=== PATIENT | female | born 1985 | race Caucasian/White ===

== ENCOUNTER 2016-12-12 16:55 | Emergency (ER) | payer OTHER ==
[~2016-12-12] VITALS: Ht 157.5 cm; Wt 45.4 kg
[~2016-12-12 16:55] MED LIST: ANTIVERT25 MG PO; CIPRO250 M1 PO; DAILY MULTIPLE1 EACH PO
--- NOTE | 2016-12-12 17:08 | ED NECK/BACK PAIN COMPLAINT ---
History of Present Illness General Chief Complaint: Low Back Pain/Injury Stated Complaint: BACK PAIN Source: patient, family, old records Exam Limitations: no limitations Vital Signs & Intake/Output Vital Signs & Intake/Output Vital Signs Date Time Temp Pulse Resp B/P Pulse O2 O2 Flow FiO2 Ox Delivery Rate 12/12 1806 97.4 82 18 122/82 97 Room Air Room Air 12/12 1659 97.7 87 16 144/85 96 Room Air Allergies Coded Allergies: NO KNOWN ALLERGIES (09/15/13) Reconcile Medications Cyclobenzaprine HCl 5 MG TABLET 1 TAB PO TIDPRN PRN pain Multivitamin (Multi-Day Vitamins) 1 EACH TABLET 1 TAB PO DAILY SUPPLEMENT ( Reported) Triage Note: PT STATES SHE IS HAVING LEFT SIDED BACK PAIN THAT STARTED A FEW DAYS AGO BUT STATES THE PAIN HAS INCREASED THIS PAST DAY. Triage Nurses Notes Reviewed? yes Onset: Abrupt Duration: day(s): (4), constant Timing: recent history Quality/Severity: mild, moderate Radiation: none Context: unknown Method of Injury: unknown Loss of Consciousness: no loss of consciousness Associated Symptoms: denies : No Patient currently breastfeeds: No HPI: 31-year-old female with no medical history presents with her family for evaluation complaining of left-sided back pain that started 4 days ago has been constant described as aching and stiffness since that is nonradiating. She denies any abdominal pain nausea vomiting diarrhea. No urinary symptoms. She denies any radiation of pain down her legs no numbness or tingling in her extremities. She denies any recent trauma or injury. She's been taking Tylenol Motrin without any improvement. She of similar symptoms in the past. No modifying factors or associated symptoms otherwise. Symptoms are not worse with change in position or movement (MARGE WRIGHT) Past History Travel History Traveled to [place] past 21 day No Medical History Any Pertinent Medical History? none Neurological: NONE EENT: NONE Cardiovascular: NONE Respiratory: NONE Gastrointestinal: NONE Hepatic: NONE Renal: NONE Musculoskeletal: NONE Psychiatric: NONE Endocrine: NONE Blood Disorders: NONE Cancer(s): NONE PRISM MEASURER/Reproductive: NONE Surgical History Surgical History: non-contributory Psychosocial History What is your primary language Slovenian Tobacco Use: Never used ETOH Use: denies use Illicit Drug Use: denies illicit drug use Family History Hx Contributory? No (MARGE WRIGHT) Review of Systems Review of Systems Constitutional: Reports: see HPI. All Other Systems: Reviewed and Negative Comments Review of systems: See HPI, All other systems negative. Constitutional, no chills no fever, no malaise no weight loss HEENT: No visual changes no sore throat no congestion Cardiovascular: No chest pain , no palpitation Skin, no rashes, no change in skin Respiratory: No dyspnea no cough no sputum GI: No nausea no vomiting, no diarrhea, no bloating/constipation : No dysuria No hematuria, no frequency, no discharge Muscle skeletal: No joint pain, no joint swelling, back pain, no neck pain, Neurologic: No numbness no headache Psych: No stress Heme/endocrine: No bruising no bleeding Immunology: No lymphadenopathy (MARGE WRIGHT) Physical Exam Physical Exam General Appearance: well developed/nourished, alert, awake Neck: normal inspection, supple, full range of motion Comments: Well-developed well-nourished person in no acute distress HEENT: Normal EENT exam; PERRL, EOMI, no nystagmus. HEAD is atraumatic. moist mucous membranes. Neck: Supple, normal range of motion Back: Nontender, no CVA tenderness. Full range of motion Cardiovascular: Regular rate and rhythms no murmurs rubs Respiratory: Chest nontender.There were no bony deformities, no asymmetry. No respiratory distress. Patient speaking in full complete sentences. Breath sounds clear to auscultation bilaterally: NO W/R/R Abdomen: Soft, nontender nondistended, no appreciable organomegaly. Normal bowel sounds. No rebound/guarding, No ascites. Extremity: No edema, full range of motion of extremities, normal and equal pulses bilaterally, 5 out of 5 strength noted to bilateral upper and lower extremities, neg slr b/l Neuro: Alert oriented x3, motor sensory normal, There were no obvious focal neurologic abnormalities. Skin: No appreciable rash on exposed skin, skin is warm and dry. Psych: Mood and affect is normal, memory and judgment is normal. (MARGE WRIGHT) Progress Differential Diagnosis: cauda equina syn, herniated disc, myofascial strain, pyelo/UTI, T/L spine injury, ureterolithiasis, iup, ectopic, pancreattis Plan of Care: Orders Procedure Date/time Status Add-on Test (ER Only) 01/21 1754 Active CULTURE,URINE 12/12 1727 Active URINE 12/12 1713 Complete URINALYSIS 12/12 1713 Complete LIPASE 12/12 1713 Complete CBC WITHOUT DIFFERENTIAL 12/12 1713 Complete BASIC METABOLIC PANEL 12/12 1713 Complete AMYLASE 12/12 1713 Complete Laboratory Tests 12/12/161727: Urinalysis LIGHT H, Urine Color YEL, Urine Clarity CLEAR, Urine pH 6.0, Ur Specific [place] 1.020, Urine Protein TRACE H, Urine Ketones NEG, Urine Nitrite NEG, Urine Bilirubin NEG, Urine Urobilinogen 0.2, Ur Leukocyte Esterase NEG, Ur Microscopic SEDIMENT EXAMINED, Urine RBC 1-3, Urine WBC 5-10 H, Ur Epithelial Cells MOD H, Urine Mucus MANY H, Urine Hemoglobin NEG, Urine Glucose NEG, Urine Test NEGATIVE 12/12/161724: Anion Gap 12, Estimated GFR > 60, BUN/Creatinine Ratio 10.0, Glucose 95, Calcium 9.9, Amylase 99, Lipase 76, CBC w Diff NO MAN DIFF REQ, RBC 4.64, MCV 91.5, MCH 30.9, RDW 13.2, MPV 10.3, Gran % 74.8, Lymphocytes % 12.2 L, Monocytes % 11.6 H, Eosinophils % 1.1, Basophils % 0.3, Absolute Granulocytes 5.9, Absolute Lymphocytes 1.0 L, Absolute Monocytes 0.9 H, Absolute Eosinophils 0.1, Absolute Basophils 0, PUBS MCHC 33.8 Microbiology 12/12 1727 URINE ROUT: Urine Culture - RECD Labs ordered old records reviewed patient is declining anything for pain offered Discussed with the patient and her family at length all of her lab results do not believe the patient personally imaging as her labs are unremarkable there's been no recent injury or trauma which they're in agreement with advise close follow-up with her primary care physician. Prescription for Flexeril was provided advised Tylenol Motrin as needed. I discussed with the patient at length all of their results, need for close follow up with their primary care physician. This week. I answered all of their questions, they feel comfortable with the plan and follow-up care. I discussed the medications that they will receive with the patient. I gave them signs and symptoms that could indicate an adverse reaction. I have advised them to limit their activities until they can see how they respond to the medication. (MARGE WRIGHT) Departure Departure Time of Disposition: 1757 Disposition: HOME OR SELF CARE Condition: Stable Clinical Impression Primary Impression: Low back strain Referrals: FELIPE LAZARO,GABRIELA Bishop Additional Instructions: Follow-up with your primary care physician on Wednesday. Tylenol or Motrin every 4 -6 hours as needed interchange ice and heat. Flexeril as directed this prescription was sent to your [facility] Departure Forms: Customer Survey General Discharge Information Prescriptions: Current Visit Scripts Cyclobenzaprine HCl 1 TAB PO TIDPRN PRN pain #12 TAB (MARGE WRIGHT) PA/JOINERY PATTERNMAKER Co-Sign Statement Statement: ED Attending supervision documentation- [] I saw and evaluated the patient. I have also reviewed all the pertinent lab results and diagnostic results. I agree with the findings and the plan of care as documented in the PA's/JOINERY PATTERNMAKER's documentation. [X] I have reviewed the ED Record and agree with the PA's/JOINERY PATTERNMAKER's documentation. [] Additions or exceptions (if any) to the PAs/JOINERY PATTERNMAKER's note and plan are summarized below: [] (VINAY LAZARO,VISHAL Cooney)
[2016-12-12 17:33] LABS: ABSOLUTE BASOPHIL COUNT 0 /CUMM (0.0-0.2); ABSOLUTE EOSINOPHIL COUNT 0.1 /CUMM (0.0-0.7); ABSOLUTE GRANULOCYTE CT 5.9 /CUMM (1.4-6.5); ABSOLUTE MONOCYTE COUNT 0.9 /CUMM (0.10-0.60); BASOPHIL % 0.3 % (0.0-2.0); EOSINOPHIL % 1.1 % (0-5); GRANULOCYTE % 74.8 % (42.2-75.2); HEMATOCRIT 42.5 % (37-47); MEAN CORPUSCULAR HGB 30.9 PG (27.0-31.0); MEAN CORPUSCULAR HGB CONC 33.8 G/DL (33.0-37.0); MEAN CORPUSCULAR VOLUME 91.5 FL (81.0-99.0); MEAN PLATELET VOLUME 10.3 FL (7.4-10.4); PLATELET COUNT 188 /CUMM (130-400); RBC DISTRIBUTION WIDTH 13.2 % (11.5-14.5); RED BLOOD CELL CT 4.64 /CUMM (4.20-5.40); WHITE BLOOD CELL COUNT 7.9 /CUMM (4.8-10.8)
[2016-12-12] MEDS ORDERED: MULTI-DAY VITA1 EACH PO (17:36)
[2016-12-12] MEDS ORDERED: CYCLOBENZAPRINE5 M2 PO (17:59)
[2016-12-12 18:06] VITALS: BP 122/82
== END 2016-12-12 18:07 ==
LOC: ERH 16:55
PROVIDERS: Physician Assistant Medical
DX: S39.012A Strain of muscle, fascia and tendon of lower back, initial encounter (principal); X58.XXXA Exposure to other specified factors, initial encounter
CPT/HCPCS: 81001; 81025; 87086